=== PATIENT | male | born 1935 | race Hispanic/Latino ===

== ENCOUNTER → 2017-07-10 | Outpatient (CLI) | payer MEDICARE ==
[~2017-07-10] MED LIST: ALEN70TA47 PO; ATOR20TA PO; CHOL100018 PO; DOXA8TAB2 PO; DOXY100C2 PO; FINA5TAB41 PO; FOLI1TAB15 PO; IBUP-2070 PO; MULT-1258 PO
== END ==
LOC: RAH 07:59
PROVIDERS: ATTEND Urology
DX: N20.0 Calculus of kidney (principal)
CPT/HCPCS: 74018; 76100